=== PATIENT | male | born 1965 | race Caucasian/White ===

== ENCOUNTER 2018-01-21 14:33 | Emergency (ER) | payer OTHER | END 2018-01-21 16:32 | disposition home or self-care (01) | LOC: FTE 14:33 | DX: S61.214A Laceration without foreign body of right ring finger without damage to nail, initial encounter (principal); X58.XXXA Exposure to other specified factors, initial encounter; Y92.9 Unspecified place or not applicable | CPT/HCPCS: 12002; 99282-25 ==